=== PATIENT | female | born 1995 | race Caucasian/White ===

== ENCOUNTER 2020-12-30 07:15 | Emergency (ER) | payer SELFPAY ==
[~2020-12-30] VITALS: Ht 160 cm; Wt 50.8 kg
[~2020-12-30 07:15] MED LIST: CYCL10TA9 PO; NAPR-243 PO
[2020-12-30] MEDS ORDERED: LACTATED RINGERS 1,000 ML IV ONE (07:30)
[2020-12-30 08:00] LABS: WHITE BLOOD COUNT 9.8 10^3/uL (4.3-11.0)
[2020-12-30 08:01] LABS: BASOPHILS # (AUTO) 0.1 10^3/uL (0.0-0.1); BASOPHILS % (AUTO) 1 % (0-10); EOSINOPHILS # (AUTO) 0.2 10^3/uL (0.0-0.3); EOSINOPHILS % (AUTO) 2 % (0-10); HEMATOCRIT 36 % (35-52); LYMPHOCYTES # (AUTO) 2.1 10^3/uL (1.0-4.0); LYMPHOCYTES % (AUTO) 21 % (12-44); MEAN CORPUSCULAR HEMOGLOBIN 29 pg (25-34); MEAN CORPUSCULAR HGB CONC 33 g/dL (32-36); MEAN CORPUSCULAR VOLUME 87 fL (80-99); MEAN PLATELET VOLUME 10.4 fL (9.0-12.2); MONOCYTES # (AUTO) 0.7 10^3/uL (0.0-1.0); MONOCYTES % (AUTO) 7 % (0-12); NEUTROPHILS # (AUTO) 6.7 10^3/uL (1.8-7.8); NEUTROPHILS % (AUTO) 69 % (42-75); PLATELET COUNT 447 10^3/uL (130-400)
[2020-12-30 08:16] LABS: BILIRUBIN,URINE NEGATIVE (NEGATIVE); CLARITY,URINE CLEAR; COLOR,URINE YELLOW; GLUCOSE, URINE (UA) NEGATIVE (NEGATIVE); KETONES,URINE NEGATIVE (NEGATIVE); LEUKOCYTE ESTERASE ,URINE NEGATIVE (NEGATIVE); NITRITE,URINE NEGATIVE (NEGATIVE); PROTEIN,URINE NEGATIVE (NEGATIVE)
[2020-12-30 08:20] LABS: ALBUMIN 3.9 GM/DL (3.2-4.5); POTASSIUM 4.2 MMOL/L (3.6-5.0)
--- NOTE | 2020-12-30 08:20 | ED General ---
General Chief Complaint: Abdominal/GI Problems Stated Complaint: RT SIDE PAIN UNDER RIB Nursing Triage Note: PT AMB TO RM 6 W REPORTS OF DIFFUSE ABD PAIN MOSTLY IN RUQ SX BEFORE SUNDAY WHEN SHE WAS SEEN IN [facility]. PT ADVISES [facility] ED DX HER W A RUPTURED OVARIAN CYST. PT TO ED TODAY D/T INCREASING PAIN THAT RADIATES TO HER SHOULDERS. PT REPORTS INABILITY TO DEEP BREATHE, COUGH, EAT, OR LAUGH D/T PAIN. PT HAD DIARRHEA THIS AM. A&OX4. Source of Information: Patient, Other (Records from [facility] in [place], [place]) Exam Limitations: No Limitations History of Present Illness Date Seen by Provider: Dec 30, 2020 Time Seen by Provider: 07:17 Initial Comments This 25-year-old young lady presents to the emergency room with complaints of abdominal pain focused primarily in the right upper quadrant that has been present for several days. She was seen at the [facility] emergency room in [place], [place] on December 25 for similar symptoms that have not resolved. She states multiple imaging studies were performed there including pelvic and gallbladder ultrasound and CT scan. According to her no pathologies were identified. She denies nausea, vomiting, diarrhea, or constipation. She denies urinary changes or vaginal symptoms. She is sexually active. She has pain with inspiration and moving. She is afebrile but tachycardic on evaluation. She reports pain immediately after eating. Allergies and Home Medications Allergies Coded Allergies: diphenhydramine (Verified Allergy, Unknown, Unknown, 12/30/20) Mother states allergy from youth Patient Home Medication List Home Medication List Reviewed: Yes Cyclobenzaprine Hcl (Cyclobenzaprine Hcl) 10 Mg Tablet, 1 EACH PO Q8HR Prescribed by: SONG AARON on 10/21/13 165 Metronidazole (Flagyl) 500 Mg Tablet, 500 MG PO BID Prescribed by: AYAAN OLIVO on 12/30/20 1257 Naproxen (Naprosyn) 500 Mg Tablet, 1 EACH PO TID PRN for PAIN Prescribed by: SONG AARON on 10/21/131654 Ondansetron (Ondansetron Odt) 4 Mg Tab.rapdis, 4 MG SL Q4H PRN for NAUSEA/VOMITING Prescribed by: AYAAN OLIVO on 12/30/20 1257 Review of Systems Review of Systems Constitutional: no symptoms reported EENTM: no symptoms reported Respiratory: see HPI Cardiovascular: see HPI Gastrointestinal: see HPI Genitourinary: no symptoms reported Musculoskeletal: no symptoms reported Skin: no symptoms reported Psychiatric/Neurological: No Symptoms Reported Hematologic/Lymphatic: No Symptoms Reported Immunological/Allergic: no symptoms reported Past Dhpflnz-Uwopeu-Hacmoc Hx Patient Social History Tobacco Use?: Yes Tobacco type used: Cigarettes Use of E-Cig and/or Vaping dev: No Substance use?: Yes Substance type: Marijuana Alcohol Use?: No Immunizations Up To Date Tetanus Booster (TDap): Less than 5yrs Past Medical History Surgeries: No Respiratory: No Cardiac: No Neurological: No : No Last Menstrual Period: Dec 09, 2020 Reproductive Disorders: No Sexually Transmitted Disease: Yes (Chlamydia, treated) Genitourinary: No Gastrointestinal: No Musculoskeletal: No Endocrine: No HEENT: No Cancer: No Psychosocial: No Family Medical History Asthma G8 BROTHER Psychosocial problem G8 BROTHER (AUTISM) Physical Exam Vital Signs Vital Signs - First Documented 12/30/20 07:50 Temp 36.2 Pulse 120 Resp 20 B/P (MAP) 111/86 (94) Pulse Ox 98 O2 Delivery Room Air Capillary Refill : Less Than 3 Seconds Height, Weight, BMI Height: 5'3" Weight: 112lbs. oz. 50.688118rh; 19.00 BMI Method:Stated General Appearance: WD/WN, Mild Distress, Thin HEENT: PERRL/EOMI, Normal ENT Inspection Neck: Normal Inspection Respiratory: Lungs Clear, Normal Breath Sounds, No Accessory Muscle Use, No Respiratory Distress, Other (Splinting respirations) Cardiovascular: No Edema, No Murmur, Tachycardia Gastrointestinal: Soft, Abnormal Bowel Sounds (Decreased); No Distended; Tenderness (Tenderness throughout the abdomen and pelvis with increasing intensity approaching the right upper quadrant. Splinting respirations.) Genital/Rectal: Other (Normal external genitalia. Copious white vaginal discharge. Cervical motion tenderness noted. No inflammatory changes apparent by visual examination of the cervix or vaginal canal.) Extremity: Normal Inspection, No Pedal Edema Neurologic/Psychiatric: Alert, Oriented x3, No Motor/Sensory Deficits, Normal Mood/Affect, saw tailer II-XII Norm as Tested Skin: Normal Color, Warm/Dry Progress/Results/Core Measures Suspected Sepsis SIRS Temperature: Pulse: 120 Respiratory Rate: 20 Laboratory Tests 12/30/20 07:50: White Blood Count 9.8 Blood Pressure 111 /86 Mean: 94 Laboratory Tests 12/30/20 07:50: Creatinine 0.71, Platelet Count 447H, Total Bilirubin 0.3 Results/Orders Lab Results Laboratory Tests Test 12/30/20 07:50 12/30/20 08:07 12/30/20 11:30 Range/Units White Blood Count 9.8 4.3-11.0 10^3/uL Red Blood Count 4.14 3.80-5.11 10^6/uL Hemoglobin 12.0 11.5-16.0 g/dL Hematocrit 36 35-52 % Mean Corpuscular Volume 87 80-99 fL Mean Corpuscular Hemoglobin 29 25-34 pg Mean Corpuscular Hemoglobin Concent 33 32-36 g/dL Red Cell Distribution Width 12.1 10.0-14.5 % Platelet Count 447 H 130-400 10^3/uL Mean Platelet Volume 10.4 9.0-12.2 fL Immature Granulocyte % (Auto) 0 % Neutrophils (%) (Auto) 69 42-75 % Lymphocytes (%) (Auto) 21 12-44 % Monocytes (%) (Auto) 7 0-12 % Eosinophils (%) (Auto) 2 0-10 % Basophils (%) (Auto) 1 0-10 % Neutrophils # (Auto) 6.7 1.8-7.8 10^3/uL Lymphocytes # (Auto) 2.1 1.0-4.0 10^3/uL Monocytes # (Auto) 0.7 0.0-1.0 10^3/uL Eosinophils # (Auto) 0.2 0.0-0.3 10^3/uL Basophils # (Auto) 0.1 0.0-0.1 10^3/uL Immature Granulocyte # (Auto) 0.0 0.0-0.1 10^3/uL Sodium Level 138 135-145 MMOL/L Potassium Level 4.2 3.6-5.0 MMOL/L Chloride Level 102 98-107 MMOL/L Carbon Dioxide Level 25 21-32 MMOL/L Anion Gap 11 5-14 MMOL/L Blood Urea Nitrogen 9 7-18 MG/DL Creatinine 0.71 0.60-1.30 MG/DL Estimat Glomerular Filtration Rate 101 BUN/Creatinine Ratio 13 Glucose Level 97 70-105 MG/DL Calcium Level 9.9 8.5-10.1 MG/DL Corrected Calcium 10.0 8.5-10.1 MG/DL Total Bilirubin 0.3 0.1-1.0 MG/DL Aspartate Amino Transf (AST/SGOT) 14 5-34 U/L Alanine Aminotransferase (ALT/SGPT) 14 0-55 U/L Alkaline Phosphatase 67 40-136 U/L C-Reactive Protein High Sensitivity 1.20 H 0.00-0.50 MG/DL Total Protein 7.2 6.4-8.2 GM/DL Albumin 3.9 3.2-4.5 GM/DL Lipase 12 8-78 U/L Serum Test, Qualitative NEGATIVE NEGATIVE Urine Color YELLOW Urine Clarity CLEAR Urine pH 7.0 5-9 Urine Specific [place] 1.020 1.016-1.022 Urine Protein NEGATIVE NEGATIVE Urine Glucose (UA) NEGATIVE NEGATIVE Urine Ketones NEGATIVE NEGATIVE Urine Nitrite NEGATIVE NEGATIVE Urine Bilirubin NEGATIVE NEGATIVE Urine Urobilinogen 4.0 < = 1.0 MG/DL Urine Leukocyte Esterase NEGATIVE NEGATIVE Urine RBC (Auto) NEGATIVE NEGATIVE Urine RBC NONE /HPF Urine WBC RARE /HPF Urine Squamous Epithelial Cells 2-5 /HPF Urine Crystals PRESENT H /LPF Urine Amorphous Sediment MOD MCKENZIE PHOSPHATE H /LPF Urine Bacteria FEW H /HPF Urine Casts NONE /LPF Urine Mucus MODERATE H /LPF Urine Culture Indicated YES Micro Results Microbiology 12/30/20 Genital Culture, Resulted Pending 12/30/20 Wet Prep - Final, Resulted My Orders Orders - AYAAN DALEY MD Ed Iv/Invasive Line Start (12/30/20 07:30) Cbc With Automated Diff (12/30/20 07:30) Comprehensive Metabolic Panel (12/30/20 07:30) Hs C Reactive Protein (12/30/20 07:30) Hcg,Qualitative Serum (12/30/20 07:30) Lipase (12/30/20 07:30) Ua Culture If Indicated (12/30/20 07:30) Lactated Ringers (Lr 1000 Ml Iv Solution (12/30/20 07:30) Chest Pa/Lat (2 View) (12/30/20 07:54) Abdomen, Flat & Upright/Decub (12/30/20 07:54) Urine Culture (12/30/20 08:07) Us Gallbladder [id number] (12/30/20 09:10) Wet Prep (12/30/20 09:40) Neisseria Gonorrhea Swab (12/30/20 09:40) Genital Culture (12/30/20 09:40) Chlamydia Trachomatis Swab (12/30/20 09:40) Ketorolac Injection (Toradol Injection) (12/30/20 11:45) Azithromycin Tablet (Zithromax Tablet) (12/30/20 11:45) Ceftriaxone (Rocephin) (12/30/20 11:45) Ondansetron Injection (Zofran Injectio (12/30/20 12:15) Lidocaine 2% Viscous 15 Ml (Xylocaine Vi (12/30/20 12:15) Antacid Suspension (Mylanta Suspension (12/30/20 12:15) Medications Given in ED Current Medications Medications Dose Ordered Sig/Natty Route Start Time Stop Time Status Last Admin Dose Admin Al Hydrox/Mg Hydrox/Simethicone 30 ml ONCE ONCE PO 12/30/20 12:15 12/30/20 12:16 DC 12/30/20 12:22 30 ML Azithromycin 1,000 mg ONCE ONCE PO 12/30/20 11:45 12/30/20 11:46 DC 12/30/20 12:25 1,000 MG Ceftriaxone Sodium 1000 mg/ Sterile Water 10 ml @ 200 mls/hr ONCE ONCE IV 12/30/20 11:45 12/30/20 11:47 DC 12/30/20 12:24 200 MLS/HR Ketorolac Tromethamine 30 mg ONCE ONCE IVP 12/30/20 11:45 12/30/20 11:46 DC 12/30/20 12:27 30 MG Lidocaine HCl 15 ml ONCE ONCE PO 12/30/20 12:15 12/30/20 12:16 DC 12/30/20 12:22 15 ML Ondansetron HCl 4 mg ONCE ONCE IVP 12/30/20 12:15 12/30/20 12:16 DC 12/30/20 12:26 4 MG Vital Signs/I&O 12/30/20 12/30/20 07:50 13:09 Temp 36.2 Pulse 120 80 Resp 20 18 B/P (MAP) 111/86 (94) 105/75 Pulse Ox 98 99 O2 Delivery Room Air Room Air Capillary Refill : Less Than 3 Seconds Blood Pressure Mean: 94 Progress Note #1: Time: 08:23 Progress Note Patient is receiving IV fluids. She declined pain medication or nausea medication at this time. We are trying to obtain records from the outside ER. Labs, urinalysis, and x-rays are pending. Progress Note #2: Time: 09:11 Progress Note Work-up thus far has been relatively unremarkable. We have not yet received records from the outside facility. I will proceed with gallbladder ultrasound for further evaluation. Patient does report a prior history of chlamydia infection with her previous partner. She states both she and her partner were treated. About a month ago she had been treated for BV. She has had 1 additional partner since her chlamydia infection. Progress Note #3: Progress Note There were no abnormal findings on any of the imaging studies. Due to patient's history of vaginal infection, a new partner, and unexplained abdominal pain, a pelvic exam was offered. Patient chose to proceed with pelvic exam. On exam there is a copious amount of white discharge in the vaginal canal with no obvious inflammation. There was cervical motion tenderness. Preliminary microscopic examination showed few white blood cells and clue cells. Patient was empirically treated with Rocephin and a azithromycin. She was given a prescription for Flagyl for bacterial vaginosis. Toradol was given for further pain control. See discharge instructions for further discussion. Diagnostic Imaging Diagonstic Imaging: Xray Plain Films/CT/US/NM/MRI: abdomen, pelvis Comments KUB and upright abdominal x-rays viewed by me and report reviewed. See report below: NAME: ROSITA WHARTON MED REC#: [id number] PT STATUS: DEP ER : 1995 PHYSICIAN: AYAAN DALEY MD ADMIT DATE: 12/30/20/ER Signed Date of Exam:12/30/20 ABDOMEN, FLAT & UPRIGHT/DECUB Indication: Right-sided abdominal pain. TIME OF EXAM: 8:41 AM No free air is identified. Bowel gas pattern is nonobstructed. No pathologic calcifications are identified. IMPRESSION: No acute feature detected. Dictated by: Dictated on workstation # [id number] Dict: 12/30/20 0856 Trans: 12/30/20 155[facility] [id number] Interpreted by: CAMILA BOWIE MD Electronically signed by: CAMILA BOWIE MD 12/30/20 1551 Diagonstic Imaging: Xray Plain Films/CT/US/NM/MRI: chest Comments Chest x-rays viewed by me and report reviewed. See report below: NAME: ROSITA WHARTON [facility] REC#: [id number] PT STATUS: [facility] ER : 1995 PHYSICIAN: AYAAN DAELY MD ADMIT DATE: 12/30/20/ER Signed Date of Exam:12/30/20 CHEST PA/LAT (2 VIEW) INDICATION: Abdominal pain and painful respiration. PA and lateral chest obtained at 08:38 a.m. FINDINGS: Heart and mediastinal silhouette are normal in appearance. The lungs are clear. There is no pneumothorax or pleural fluid. IMPRESSION: Negative chest. Dictated by: Dictated on workstation # [id number] Dict: 12/30/20 0845 Trans: 12/30/[address] [place] [address] [id number] Interpreted by: MIRTA BERNAL MD Electronically signed by: MIRTA BERNAL MD 12/30/20 1038 Diagonstic Imaging: Ultrasound Plain Films/CT/US/NM/MRI: abdomen Comments Gallbladder ultrasound discussed with the industrial electrical technician and report reviewed. See report below: NAME: ROSITA WHARTON [facility] REC#: [id number] PT STATUS: [facility] ER : 1995 PHYSICIAN: AYAAN DALEY MD ADMIT DATE: 12/30/20/ER Signed Date of Exam:12/30/20 US GALLBLADDER 11335 PROCEDURE: US Gallbladder. TECHNIQUE: Multiple real-time grayscale images were obtained over the right upper quadrant in various projections. INDICATION: Right upper quadrant pain. The liver measures 15 cm in size. Portal vein is patent and shows normal direction of flow. No mass is identified. The gallbladder is without stones or sludge. No wall thickening or biliary ductal dilatation is seen. The pancreas is unremarkable. Aorta is nonaneurysmal. IVC is patent. Right kidney is without calculi or hydronephrosis. There is no ascites. IMPRESSION: Unremarkable gallbladder ultrasound. Dictated by: Dictated on workstation # [id number] Dict: 12/30/20 1038 Trans: 12/30/[address] [facility] [phone] Interpreted by: CAMILA BOWIE MD Electronically signed by: CAMILA BOWIE MD 12/30/20 1552 Departure Impression Primary Impression: Right upper quadrant pain Additional Impressions: Pelvic pain Bacterial vaginosis Disposition: 01 HOME, SELF-CARE Condition: Improved Departure-Patient Inst. Decision time for Depature: 12:54 Referrals: NO,LOCAL PHYSICIAN (PCP/Family) Primary Care Physician Patient Instructions: Severe Abdominal Pain Add. Discharge Instructions: Drink plenty of clear liquids to stay well-hydrated. Gradually advance your diet with small quantities of bland food as tolerated. Complete the Flagyl (metronidazole) antibiotic as prescribed. Use the Zofran (ondansetron) as prescribed for nausea and vomiting. For pain try Tylenol (acetaminophen) up to 650 mg every 6 hours as needed. Add ibuprofen up to 400 mg every 6 hours as needed for pain not controlled by Tylenol. It may be helpful to take an uupe-apt-zrhxyzk antacid medication such as Pepcid (famotidine) 20 mg twice daily or omeprazole 20 mg daily. Please establish with and follow-up with a primary care provider soon as possible. Your vaginal culture results will not be available for a few days. Please abstain from any sexual activity or anything in the vagina until the results are known. If you have a positive test, your partner will need to be treated before you resume any sexual activity. Call with questions or concerns. Return to the ER if you have worsening symptoms. All discharge instructions reviewed with patient and/or family. Voiced understanding. Scripts Metronidazole (Flagyl) 500 Mg Tablet 500 MG PO BID, #14 TAB Prov: AYAAN DALEY MD 12/30/20 Ondansetron (Ondansetron Odt) 4 Mg Tab.rapdis 4 MG SL Q4H PRN for NAUSEA/VOMITING, #10 TAB Prov: AYAAN DALEY MD 12/30/20 AYAAN DALEY MD Dec 30, 2020 08:20
[2020-12-30 08:21] LABS: CALCIUM 9.9 MG/DL (8.5-10.1)
[2020-12-30 08:23] LABS: TOTAL PROTEIN 7.2 GM/DL (6.4-8.2)
[2020-12-30 08:24] LABS: BILIRUBIN,TOTAL 0.3 MG/DL (0.1-1.0)
[2020-12-30 08:26] LABS: CREATININE SERUM 0.71 MG/DL (0.60-1.30)
[2020-12-30 08:31] LABS: AMORPHOUS SEDIMENT,UR MOD AMOR PHOSPHATE /LPF; BACTERIA,URINE FEW /HPF; WBC,URINE RARE /HPF
--- NOTE | 2020-12-30 08:47 | Diagnostic Imaging Report ---
INDICATION: Abdominal pain and painful respiration. PA and lateral chest obtained at 08:38 a.m. FINDINGS: Heart and mediastinal silhouette are normal in appearance. The lungs are clear. There is no pneumothorax or pleural fluid. IMPRESSION: Negative chest. Dictated by: Dictated on workstation # [id number]
--- NOTE | 2020-12-30 08:58 | Diagnostic Imaging Report ---
Indication: Right-sided abdominal pain. TIME OF EXAM: 8:41 AM No free air is identified. Bowel gas pattern is nonobstructed. No pathologic calcifications are identified. IMPRESSION: No acute feature detected. Dictated by: Dictated on workstation # [id number]
--- NOTE | 2020-12-30 10:42 | Diagnostic Imaging Report ---
PROCEDURE: US Gallbladder. TECHNIQUE: Multiple real-time grayscale images were obtained over the right upper quadrant in various projections. INDICATION: Right upper quadrant pain. The liver measures 15 cm in size. Portal vein is patent and shows normal direction of flow. No mass is identified. The gallbladder is without stones or sludge. No wall thickening or biliary ductal dilatation is seen. The pancreas is unremarkable. Aorta is nonaneurysmal. IVC is patent. Right kidney is without calculi or hydronephrosis. There is no ascites. IMPRESSION: Unremarkable gallbladder ultrasound. Dictated by: Dictated on workstation # [id number]
[2020-12-30] MEDS ORDERED: KETOROLAC 30 MG/ML VIAL IVP ONE (11:45)
[2020-12-30] MEDS ORDERED: cefTRIAXone 1,000 MG in WATER (STERILE) FOR INJECTION 10 ML IV ONE (11:45)
[2020-12-30] MEDS ORDERED: AZITHROMYCIN 250 MG TAB (ZITHROMAX) PO ONE (11:45)
[2020-12-30] MEDS ORDERED: LIDOCAINE 2% VISCOUS 15 ML UDC PO ONE (12:15)
[2020-12-30] MEDS ORDERED: ANTACID SUSP 30 ML UDC (MYLANTA) PO ONE (12:15)
[2020-12-30] MEDS ORDERED: ONDANSETRON 4 MG/2 ML (SDV) Z0FRAN IVP ONE (12:15)
[2020-12-30] MEDS ORDERED: METR500T PO (12:57)
[2020-12-30] MEDS ORDERED: ONDA4TAB11 SL (12:57)
[2020-12-30 13:09] VITALS: BP 105/75
== END 2020-12-30 13:09 | disposition home or self-care (01) ==
LOC: EDUNIT# 07:15 → ER 07:20
DX: R10.11 Right upper quadrant pain (principal); R10.2 Pelvic and perineal pain; N76.0 Acute vaginitis; R00.0 Tachycardia, unspecified; Z72.0 Tobacco use
CPT/HCPCS: 36415; 71046; 74019; 76705; 80053; 81000; 83690; 84703; 85025; 86141; 87070; 87088; 87205; 87210; 87491; 87591

== ENCOUNTER 2021-06-22 20:11 | Emergency (ER) | payer SELFPAY ==
[~2021-06-22] VITALS: Ht 160 cm; Wt 51.2 kg
[~2021-06-22 20:11] MED LIST changes: +METR500T PO; +ONDA4TAB11 SL
[2021-06-22 20:52] VITALS: BP 102/68
--- NOTE | 2021-06-22 21:55 | Diagnostic Imaging Report ---
INDICATION: Fall, left foot injury. EXAMINATION: Three views of the left foot. FINDINGS: Subtle lucency involving the medial aspect of the navicular. This could be a nondisplaced fracture. Please correlate with point tenderness. Additional osseous structures are intact. There is no foreign body. IMPRESSION: Questionable navicular fracture at its medial aspect. Dictated by: Dictated on workstation # [id number]
--- NOTE | 2021-06-22 22:00 | Diagnostic Imaging Report ---
INDICATION: Ankle pain, fall. EXAMINATION: Three views of the left ankle. FINDINGS: No fracture or dislocation. Articular surfaces are normal. No foreign body. IMPRESSION: Negative left ankle. Dictated by: Dictated on workstation # [id number]
--- NOTE | 2021-06-22 22:24 | ED Lower Extremity ---
General Chief Complaint: Lower Extremity Stated Complaint: L FOOT INJURY Nursing Triage Note: Pt arrival to ER via wheelchair with complaint of L. ankle injury after tripping and falling at work. Pt states that she tripped over a rebar stake and landing awkward on that foot. Pt has notable swelling and bruising. Pt able to move toes and has sensation, but rates pain at a 10/10. History of Present Illness Date Seen by Provider: Jun 22, 2021 Time Seen by Provider: 20:53 Initial Comments 26-year-old female is here with complaints of left foot and ankle pain after she had a fall today at work. 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 Denies sensory loss. Patient has bruising and swelling of the foot. Denies head strike. Allergies and Home Medications Allergies Coded Allergies: diphenhydramine (Verified Allergy, Unknown, Unknown, 12/30/20) Mother states allergy from youth Patient Home Medication List Home Medication List Reviewed: Yes Cyclobenzaprine Hcl (Cyclobenzaprine Hcl) 10 Mg Tablet, 1 EACH PO Q8HR Prescribed by: SONG AARON on 10/21/13 1655 Metronidazole (Flagyl) 500 Mg Tablet, 500 MG PO BID Prescribed by: AYAAN OLIVO on 12/30/20 1257 Naproxen (Naprosyn) 500 Mg Tablet, 1 EACH PO TID PRN for PAIN Prescribed by: SONG AARON on 10/21/13 1655 Ondansetron (Ondansetron Odt) 4 Mg Tab.rapdis, 4 MG SL Q4H PRN for NAUSEA/VOMITING Prescribed by: AYAAN OLIVO on 12/30/20 1257 Review of Systems Constitutional: no symptoms reported EENTM: no symptoms reported Respiratory: no symptoms reported Cardiovascular: no symptoms reported Gastrointestinal: no symptoms reported Genitourinary: no symptoms reported Musculoskeletal: joint pain, joint swelling, muscle pain Skin: no symptoms reported Psychiatric/Neurological: No Symptoms Reported Past Ueetpdz-Ntunrx-Mgfdmr Hx Patient Social History Tobacco Use?: No Use of E-Cig and/or Vaping dev: No Substance use?: No Alcohol Use?: No Pt feels they are or have been: No Immunizations Up To Date Tetanus Booster (TDap): Less than 5yrs Past Medical History Surgeries: No Respiratory: No Cardiac: No Neurological: No Reproductive Disorders: No Sexually Transmitted Disease: Yes (Chlamydia, treated) Genitourinary: No Gastrointestinal: No Musculoskeletal: No Endocrine: No HEENT: No Cancer: No Psychosocial: No Family Medical History Asthma G8 BROTHER Psychosocial problem G8 BROTHER (AUTISM) Physical Exam Vital Signs Vital Signs - First Documented 06/22/21 20:52 Temp 37.5 Pulse 94 Resp 16 B/P (MAP) 102/68 (79) Pulse Ox 99 O2 Delivery Room Air Capillary Refill : Less Than 3 Seconds Height, Weight, BMI Height: 5'3" Weight: 112lbs. oz. 50.741670mp; 20.00 BMI Method:Stated General Appearance: no apparent distress HEENT: PERRL/EOMI Neck: full range of motion Knees: left knee non-tender, left knee normal inspection, left knee normal range of motion, left knee no evidence of injury Ankles: left ankle bone tenderness, left ankle limited range of motion, left ankle pain, left ankle soft tissue tenderness, left ankle swelling Feet: left foot bone tenderness, left foot ecchymosis, left foot limited range of motion, left foot pain, left foot soft tissue tenderness, left foot swelling Neurologic/Tendon: normal sensation, normal motor functions, normal tendon functions, responds to pain Neurologic/Psychiatric: alert, normal mood/affect, oriented x 3 Skin: ecchymosis Lymphatic: no adenopathy Progress/Results/Core Measures Results/Orders My Orders Orders - VENKATA DICK MD Foot, Left, 3 Views (06/22/21 20:59) Ankle, Left, 3 Views (06/22/21 20:59) Vital Signs/I&O 06/22/21 20:52 Temp 37.5 Pulse 94 Resp 16 B/P (MAP) 102/68 (79) Pulse Ox 99 O2 Delivery Room Air Blood Pressure Mean: 79 Progress Progress Note : Progress Note 1. LEFT NAVICULAR FRACTURE OF FOOT: - XR: see below - walking boot - F/u with Podiatry - NSAID / ice Diagnostic Imaging Diagonstic Imaging: Xray Plain Films/CT/US/NM/MRI: ankle, other (foot) Comments [facility] [place] [place] NAME: ROSITA WHARTON REC#: [id number] PT STATUS: REG ER : 1995 PHYSICIAN: VENKATA DICK MD ADMIT DATE: 06/22/21/ER Draft Date of Exam:06/22/21 FOOT, LEFT, 3 VIEWS INDICATION: Fall, left foot injury. EXAMINATION: Three views of the left foot. FINDINGS: Subtle lucency involving the medial aspect of the navicular. This could be a nondisplaced fracture. Please correlate with point tenderness. Additional osseous structures are intact. There is no foreign body. IMPRESSION: Questionable navicular fracture at its medial aspect. Dictated on workstation # [id number] Dict: 06/22/212141 Trans: 06/22/212154 PJE [id number] Interpreted by: CALVIN SIMON Electronically signed by: [facility] [place] [place] NAME: ROSITA WHARTON [facility] REC#: [id number] PT STATUS: REG ER : 1995 PHYSICIAN: VENKATA DICK MD ADMIT DATE: 06/22/21/ER Draft Date of Exam:06/22/21 ANKLE, LEFT, 3 VIEWS INDICATION: Ankle pain, fall. EXAMINATION: Three views of the left ankle. FINDINGS: No fracture or dislocation. Articular surfaces are normal. No foreign body. IMPRESSION: Negative left ankle. Dictated on workstation # [id number] Dict: 06/22/212144 Trans: 06/22/212199 PJE [id number] Interpreted by: CALVIN SIMON Electronically signed by: Departure Impression Primary Impression: Left navicular fracture of foot Qualified Codes: S92.255A - Nondisplaced fracture of navicular [scaphoid] of left foot, initial encounter for closed fracture Additional Impression: Contusion of foot, left Qualified Codes: S90.32XA - Contusion of left foot, initial encounter Disposition: 01 HOME, SELF-CARE Condition: Stable Departure-Patient Inst. Referrals: NO,LOCAL PHYSICIAN (PCP) Primary Care Physician GAIL REN DPM Patient Instructions: Walking Boot, Foot Fracture ED Add. Discharge Instructions: NSAID/ Ice F/u with Optical Laboratory Manager: Dr Molly carmichael All discharge instructions reviewed with patient and/or family. Voiced understanding. 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
== END 2021-06-22 22:54 | disposition home or self-care (01) ==
LOC: EDUNIT# 20:11 → ER 20:12
DX: S92.252A Displaced fracture of navicular [scaphoid] of left foot, initial encounter for closed fracture (principal); X50.1XXA Overexertion from prolonged static or awkward postures, initial encounter
CPT/HCPCS: 73610; 73630; 99282; L2114

== ENCOUNTER 2022-01-21 08:59 | Emergency (ER) | payer SELFPAY ==
[~2022-01-21] VITALS: Ht 160 cm; Wt 49.0 kg
[2022-01-21 09:05] VITALS: BP 113/57
[2022-01-21] MEDS ORDERED: CYCL5TAB PO (09:16)
--- NOTE | 2022-01-21 09:17 | ED Neck-Back Pain/Injury ---
General Chief Complaint: Head/Cervical Problems Stated Complaint: NECK PAIN Nursing Triage Note: ARRIVED VIA AMB TO ROOM 05 ET CRYING DUE TO WAKING UP WITH NECK PAIN. HAS NOT TAKEN ANYTHING FOR THE PAIN. Source of Information: Patient Exam Limitations: No Limitations History of Present Illness Date Seen by Provider: Jan 21, 2022 Time Seen by Provider: 09:10 Initial Comments 26-year-old female who is otherwise healthy presents emerged department today for left neck pain. She states she woke up this way and feels like she slept on it wrong. She never had this happen before. 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 She denies any midline tenderness. No upper or lower extremity weakness numbness or tingling. No specific injury. Pain is dull throbbing worse with rotational movements of her head to the left side. Alleviated somewhat by not moving. No radiation. Moderate. Allergies and Home Medications Allergies Coded Allergies: diphenhydramine (Verified Allergy, Unknown, Unknown, 12/30/20) Mother states allergy from youth Patient Home Medication List Home Medication List Reviewed: Yes Cyclobenzaprine HCl (Cyclobenzaprine HCl) 5 Mg Tablet, 5 MG PO Q6H Prescribed by: CAROL GARCIA MD on 01/21/22 0916 Discontinued Medications Cyclobenzaprine Hcl (Cyclobenzaprine Hcl) 10 Mg Tablet, 1 EACH PO Q8HR Discontinued Reason: No Longer Taking Prescribed by: SONG AARON on 10/21/131654 Last Action: Discontinued Metronidazole (Flagyl) 500 Mg Tablet, 500 MG PO BID Discontinued Reason: No Longer Taking Prescribed by: AYAAN OLIVO on 12/30/20 1257 Last Action: Discontinued Naproxen (Naprosyn) 500 Mg Tablet, 1 EACH PO TID PRN for PAIN Discontinued Reason: No Longer Taking Prescribed by: SONG AARON on 10/21/131654 Last Action: Discontinued Ondansetron (Ondansetron Odt) 4 Mg Tab.rapdis, 4 MG SL Q4H PRN for NAUSEA/VOMITING Discontinued Reason: No Longer Taking Prescribed by: AYAAN OLIVO on 12/30/20 1257 Last Action: Discontinued Review of Systems Constitutional: no symptoms reported EENTM: no symptoms reported Respiratory: no symptoms reported Cardiovascular: no symptoms reported Gastrointestinal: no symptoms reported Genitourinary: no symptoms reported Musculoskeletal: neck pain Skin: no symptoms reported Psychiatric/Neurological: No Symptoms Reported Past [id number] Hx Patient Social History Tobacco Use?: No Smoking Status: Never a Smoker Use of E-Cig and/or Vaping dev: No Substance use?: Yes Substance type: Marijuana Alcohol Use?: No Immunizations Up To Date Tetanus Booster (TDap): Less than 5yrs Past Medical History Surgeries: No Respiratory: No Cardiac: No Neurological: No Reproductive Disorders: No Sexually Transmitted Disease: Yes (Chlamydia, treated) Genitourinary: No Gastrointestinal: No Musculoskeletal: No Endocrine: No HEENT: No Cancer: No Psychosocial: No Family Medical History Reviewed Nursing Family Hx Asthma G8 BROTHER Psychosocial problem G8 BROTHER (AUTISM) No Pertinent Family Hx Physical Exam Vital Signs Vital Signs - First Documented 01/21/22 09:05 Temp 36.3 Pulse 67 Resp 16 B/P (MAP) 113/57 (75) Pulse Ox 100 O2 Delivery Room Air Capillary Refill : Less Than 3 Seconds Height, Weight, BMI Height: 5'3" Weight: 112lbs. oz. [id number]; 19.00 BMI Method:Stated General Appearance: No Apparent Distress, WD/WN, Anxious HEENT: PERRL/EOMI, TMs Normal, Normal ENT Inspection, Pharynx Normal Neck: Normal Inspection, Supple, Other (Tenderness palpation left lateral neck. Paraspinal musculature. This is mostly with rotational movements to the left and looking up. No midline tenderness.) Cardiovascular: Regular Rate, Rhythm, No Edema, No Gallop, No JVD, No Murmur, Normal Peripheral Pulses Respiratory: Chest Non Tender, Lungs Clear, Normal Breath Sounds, No Accessory Muscle Use, No Respiratory Distress Gastrointestinal: Normal Bowel Sounds, No Organomegaly, No Pulsatile Mass, Non Tender, Soft Back: Normal Inspection, No Vertebral Tenderness Extremity: Normal Capillary Refill, Normal Inspection, Normal Range of Motion, Non Tender, No Calf Tenderness, No Pedal Edema Neurologic/Psychiatric: Alert, Oriented x3, No Motor/Sensory Deficits, Normal Mood/Affect, 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 Conservative care with muscle relaxers, stretching exercises found. No evidence for spinal stenosis, neurologic deficit. Impression Primary Impression: Neck pain Disposition: HOME, SELF-CARE Condition: Stable Departure-Patient Inst. Referrals: NO,LOCAL PHYSICIAN (PCP/Family) Primary Care Physician Patient Instructions: Cervical Muscle Strain (DC) Add. Discharge Instructions: Please take the muscle relaxer medicines as prescribed as needed. These will make you drowsy so do not drive or make important decisions while you are taking them. Perform neck stretching exercises as discussed. Is likely take 2 to 3 days for this to completely get better. Return to the emergency department for any severe concerns. Follow-up with your primary doctor for any nonemergent needs All discharge instructions reviewed with patient and/or family. Voiced understanding. Scripts Cyclobenzaprine HCl (Cyclobenzaprine HCl) 5 Mg Tablet 5 MG PO Q6H for Muscle Spasms for 3 Days, #12 TAB Prov: CAROL GARCIA DO 01/21/22 CAROL GARCIA DO Jan 21, 2022 09:17
== END 2022-01-21 09:26 | disposition home or self-care (01) ==
LOC: EDUNIT# 08:59 → ER 09:02
DX: M54.2 Cervicalgia (principal); Z28.310 Unvaccinated for COVID-19
CPT/HCPCS: 99281